=== PATIENT | female | born 1975 | race Caucasian/White ===

== ENCOUNTER → 2017-02-13 | Outpatient (CLI) | payer MEDICAID | END | disposition home or self-care (01) | LOC: CFH 09:24 | PROVIDERS: ATTEND Student in an Organized Health Care Education/Training Program | DX: N83.201 Unspecified ovarian cyst, right side (principal); N83.202 Unspecified ovarian cyst, left side | CPT/HCPCS: 76830 ==

== ENCOUNTER 2017-12-11 16:46 | Emergency (ER) | payer MEDICAID ==
[~2017-12-11] VITALS: Ht 165.1 cm; Wt 94.3 kg
[2017-12-11] MEDS ORDERED: LOSA100T6 PO (17:25)
[2017-12-11 17:40] LABS: BASOPHILS # (AUTO) 0.07 x10^3/uL (0-0.1); BASOPHILS % (AUTO) 1 % (0-1); EOSINOPHILS # (AUTO) 0.14 x10^3/uL (0-0.4); EOSINOPHILS % (AUTO) 2 % (1-7); LYMPHOCYTES # (AUTO) 2.05 x10^3/uL (1-3.4); LYMPHOCYTES % (AUTO) 23 % (22-44); MD NO; MEAN CORPUSCULAR HEMOGLOBIN 29.3 pg (27.0-34.8); MEAN CORPUSCULAR HGB CONC 34.2 g/dL (32.4-35.8); MEAN CORPUSCULAR VOLUME 85.6 fL (80-100); MONOCYTES # (AUTO) 0.66 x10^3/uL (0.2-0.8); MONOCYTES % (AUTO) 8 % (2-9); NEUTROPHILS # (AUTO) 5.86 x10^3/uL (1.8-6.8); NEUTROPHILS % (AUTO) 67 % (42-75); PLATELET COUNT 327 x10^3/uL (130-400); RED CELL DISTRIBUTION WIDTH 13.2 % (9.6-15.2)
[2017-12-11 17:50] LABS: ANION GAP 6 mmol/L (5-15); CALCIUM 8.6 mg/dL (8.5-10.1); CHLORIDE 107 mmol/L (98-107)
[2017-12-11 17:51] LABS: ALANINE AMINOTRANSFERASE 22 U/L (12-78); ALBUMIN 3.3 g/dL (3.4-5.0)
[2017-12-11 17:55] LABS: ALKALINE PHOSPHATASE 61 U/L (45-117); BILIRUBIN,TOTAL 0.3 mg/dL (0.2-1.0); CREATININE 1.03 mg/dL (0.55-1.02); FREE T4 (FREE THYROXINE) 1.07 ng/dL (0.76-1.46); TOTAL PROTEIN 7.5 g/dL (6.4-8.2); TROPONIN I < 0.015 ng/mL (0.000-0.045)
[2017-12-11 19:28] VITALS: BP 147/79
== END 2017-12-11 19:30 | disposition home or self-care (01) ==
LOC: ED 19:00
DX: R00.2 Palpitations (principal); I10 Essential (primary) hypertension
CPT/HCPCS: 36415; 71046; 80053; 83880; 84439; 84443; 84484; 85025; 93005; 99285

== ENCOUNTER → 2018-07-28 | Outpatient (CLI) | payer MEDICAID ==
[~2018-07-28] MED LIST: LOSA100T14 PO
== END | disposition home or self-care (01) ==
LOC: CFH 08:03
PROVIDERS: ATTEND Nurse Practitioner
DX: K21.9 Gastro-esophageal reflux disease without esophagitis (principal)
CPT/HCPCS: 74220

== ENCOUNTER 2019-05-03 08:16 | Emergency (ER) | payer MEDICAID, OTHER ==
[~2019-05-03] VITALS: Ht 165.1 cm; Wt 96.1 kg
--- NOTE | 2019-05-03 08:55 | NUR ---
pt to room from lobby at this time.
[2019-05-03] MEDS ORDERED: KETOROLAC 30 MG/1 ML IM ONE (09:00)
--- NOTE | 2019-05-03 09:13 | NUR ---
pt states she has took 600mg ibuprofen this am; TEJAL Barnes notified. RN instructed to hold ibuprofen dose ordered. pt in radiology at this time.
--- NOTE | 2019-05-03 10:17 | NUR ---
EDT at bedside for splint and belgica wrap placement. EDPA at bedside to update pt with results and POC.
[2019-05-03 10:45] VITALS: BP 134/78
--- NOTE | 2019-05-03 10:48 | NUR ---
splint and belgica wrap applied, cms intact. pt given fitted crutches, educated on use. pt demonstrates appropriate crutch use. pt given workmans comp paperwork filled out by provider. pt educated regarding reccs for tylenol/ibuprofen use for pain control. pt a&o, resps even and unlabored, amb to dc desk with crutch gait accompanied by spouse. antonio at [place].
== END 2019-05-03 10:47 | disposition home or self-care (01) ==
LOC: ED 10:20
DX: S83.91XA Sprain of unspecified site of right knee, initial encounter (principal); S93.401A Sprain of unspecified ligament of right ankle, initial encounter; I10 Essential (primary) hypertension; J45.909 Unspecified asthma, uncomplicated; Z90.710 Acquired absence of both cervix and uterus; Z88.8 Allergy status to other drugs, medicaments and biological substances; Z79.899 Other long term (current) drug therapy; W19.XXXA Unspecified fall, initial encounter; Y93.89 Activity, other specified; Y92.69 Other specified industrial and construction area as the place of occurrence of the external cause; Y99.8 Other external cause status
CPT/HCPCS: 99283